=== PATIENT | female | born 1980 | race American Indian/Alaskan Native ===

== ENCOUNTER 2016-03-24 06:05 | Day surgery (SDC) | payer MEDICAID ==
[~2016-03-24 06:05] MED LIST: HEPARIN SUB-Q NR; PEPCID PO NR; VERSED IV NR; ceFAZolin 2 GM in NACL 0.9% 100 ML IV SCH
[2016-03-24] MEDS: NACL 0.9% 1000 ML 1,000 ML IV SCH ×2 (06:43→10:35)
[2016-03-24] MEDS ORDERED: NACL BACTERIOSTATIC INFILTRATI ONE (06:55)
[2016-03-24] MEDS ORDERED: ZEMURON IV ONE (07:20)
[2016-03-24] MEDS ORDERED: DECADRON ONE (07:21)
[2016-03-24] MEDS ORDERED: SUBLIMAZE ONE (07:21)
[2016-03-24] MEDS ORDERED: DIPRIVAN 10 MG/ML IV ONE (07:21)
[2016-03-24] MEDS ORDERED: TORADOL ONE (07:21)
[2016-03-24] MEDS ORDERED: XYLOCAINE MPF 2% ONE (07:21)
[2016-03-24] MEDS ORDERED: BLOXIVERZ ONE (07:21)
[2016-03-24] MEDS ORDERED: ROBINUL ONE (07:21)
[2016-03-24] MEDS ORDERED: ZOFRAN IV PRN (07:22)
--- NOTE | 2016-03-24 07:22 | Anesthesia Day of Surgery ---
Anesthesia Day of Surgery - Day of Surgery Patient Examined: Yes Patient H&P Reviewed: Yes Patient is NPO: Yes
--- NOTE | 2016-03-24 07:22 | Anesthesia Consultation ---
Anesthesia Consult and Med Hx Date of service: 03/24/16 - Airway Anesthetic Teeth Evaluation: Good ROM Head & Neck: Adequate Mental/Hyoid Distance: Adequate Mallampati Class: Class II Intubation Access Assessment: Probably Good - Pulmonary Exam CTA: Yes - Cardiac Exam Cardiac Exam: RRR - Pre-Operative Health Status ASA Pre-Surgery Classification: ASA1 Proposed Anesthetic Plan: General - Pulmonary Hx Smoking: No Hx Sleep Apnea: No - Cardiovascular System Hx Hypertension: No - Central Nervous System Hx Psychiatric Problems: No - Other Systems Hx Cancer: No - Additional Comments Anesthesia Medical History Comments: h/o migraine BOWMAN. No family hx of anesthesia cx.
[2016-03-24] MEDS ORDERED: ANCEF/STERILE WATER 2 GM/20 ML 2 GM/20 ML SYRINGE IV SCH (08:00)
[2016-03-24] MEDS ORDERED: NACL 0.9% IR ONE (09:02)
[2016-03-24] MEDS ORDERED: MARCAINE 0.25% INFILTRATI ONE (09:02)
--- NOTE | 2016-03-24 09:30 | Post Operative Note ---
Date of procedure: 03/24/16 Pre-op diagnosis: umbilical hernia Post-op diagnosis: same Findings: fat-containing UH Procedure: laparoscopic umbilical hernia repair with mesh Anesthesia: KIARRA Surgeon: HUBER REYNOLDS Estimated blood loss: none Pathology: none Condition: stable Disposition: PACU
--- NOTE | 2016-03-24 09:35 | Discharge Summary ---
Short Stay Discharge Plan Activity: no restrictions Diet: regular Wound: other (remove dressing at belly button in 3 days; may shower in 3 days; wear abdominal binder or a girdle at all times for comfort/pain relief) Follow up with: CARLOTTA ROBLEDO JR, MD [Primary Care Provider] - 7 Days HUBER REYNOLDS MD [Staff Physician] - 7 Days Prescriptions: oxyCODONE /ACETAMINOPHEN [Percocet 5/325] 1 - 2 tab PO Q6HR PRN #40 tablet PRN Reason: Pain Promethazine [Phenergan TAB] 25 mg PO Q6HR PRN #10 tab PRN Reason: Nausea
[2016-03-24] MEDS: DILAUDID IV PRN ×3 (10:00→10:23)
[2016-03-24] MEDS ORDERED: PERCOCET 5/325 PO PRN (10:18)
--- NOTE | 2016-03-24 10:24 | Post Anesthesia Evaluation ---
- Post Anesthesia Evaluation Patient Participated: Yes Airway Patent: Yes Stable Respiratory Function: Yes Nausea/Vomiting: No Temp > 96.8F: Yes Pain Manageable: Yes Adequeate Hydration: Yes Anesthesia Complications: No Block Receding Appropriately: Not Applicable Patient on Ventilator: No
--- NOTE | 2016-03-24 10:45 | Operative Report ---
PREOPERATIVE DIAGNOSIS: Umbilical hernia. POSTOPERATIVE DIAGNOSIS: Umbilical hernia. PROCEDURE: Laparoscopic umbilical hernia repair with mesh. TYPE OF ANESTHESIA: General. SURGEON: Ava Olmedo MD EMOTIONAL SUPPORT TEACHER: None. ESTIMATED BLOOD LOSS: None. INDICATIONS: This is a 36-year-old woman with a small fat containing umbilical hernia. Due to the pain, the patient wanted to have it repaired. DESCRIPTION OF PROCEDURE: The patient was brought to the operating room, laid supine on the table. After adequate general endotracheal anesthesia was obtained, her left arm was tucked by her side and her abdomen was prepped and draped in the usual fashion. A 0.25% Marcaine was infiltrated in the left lateral abdominal wall. Small incision was made. A Veress needle was inserted and the abdominal cavity was insufflated to an adequate pressure. Next, an additional 5 mm and an 11 port were placed on the left lateral abdominal wall under direct visualization after infiltrating the skin with 0.25% Marcaine. Attention was turned to the abdominal wall. The patient was noted to have a small umbilical hernia with some fat that was grasped and removed from the hernia and removed from the abdominal cavity and discarded. This was just preperitoneal fat. The defect at the umbilicus was less than 2 cm. Therefore, I chose to use a 10 x 15 cm dual-sided composite mesh for the repair. The mesh was prepared by placing 0 Vicryl sutures on the midpoint on all four directions. The mesh was rolled up and brought into the field through the 11 mm port site. The mesh was then unfurled making sure that the rough side was towards the abdominal wall. Counter stab incisions were made on the abdominal wall after infiltrating the skin with 0.25% Marcaine and the transfixation sutures were brought out using the Endoclose needle. Once the transfixation sutures were tied, the mesh was then secured to the abdominal wall, centering it on the umbilicus using the ProTacker device. Once this was done, the mesh laid nicely covering the defect. The 11 mm port and the left lower quadrant 5 mm ports were removed under direction visualization, then as much CO2 was evacuated and the last port was removed, making sure the mesh was lying flat without any bulging or defects. Once this was done, the last port was removed and the port sites were reapproximated using a 4-0 Monocryl in subcuticular fashion. The wounds were dressed and the transfixation suture sites as well as the port sites were dressed with skin glue. The patient tolerated the procedure. There were no immediate complications. All counts reported as correct. JOB# [id number] EARL/ISAÍAS
[2016-03-24 13:15] VITALS: BP 120/77
== END 2016-03-24 12:45 | disposition home or self-care (01) ==
LOC: OR 06:05
PROVIDERS: ATTEND Surgery
DX: K42.9 Umbilical hernia without obstruction or gangrene (principal); M19.90 Unspecified osteoarthritis, unspecified site; G43.109 Migraine with aura, not intractable, without status migrainosus; Z82.49 Family history of ischemic heart disease and other diseases of the circulatory system
CPT/HCPCS: 49652; 81025; C1781; J0690; J1100; J1170; J1644; J1885; J2250; J2405; J2704; J2710; J3010; J7030